=== PATIENT | male | born 1940 | race Caucasian/White ===

== ENCOUNTER 2017-04-23 07:17 | Day surgery (SDC) | payer MEDICARE, OTHER ==
[~2017-04-23 07:17] MED LIST: Lactated Ringers 1,000 ML IV SCH; Lidocaine 1%/Sod Bicarbonate in NS 8.4% 1 ML Syringe PRN; Sodium Chloride 0.9% 10 ML Syringe FLUSH PRN
[2017-04-23] MEDS ORDERED: Propofol 200 MG/20 ML SDV ONE ×2 (07:36→08:46)
[2017-04-23] MEDS ORDERED: fentaNYL 100 MCG/2 ML SDV ONE (07:37)
[2017-04-23] MEDS ORDERED: Lidocaine 1% 4 ML ONE (07:38)
--- NOTE | 2017-04-23 07:39 | PCM.PREANE ---
Preanesthetic Assessment - Anesthesia/Transfusion/Family Hx Anesthesia History: Prior Anesthesia Without Reaction Family History of Anesthesia Reaction: No Transfusion History: No Prior Transfusion(s) - Review of Systems General: No Symptoms Pulmonary: No Symptoms Cardiovascular: No Symptoms Gastrointestinal: No symptoms Neurological: No Symptoms Other: Reports: None - Physical Assessment NPO Status Date: 04/22/17 NPO Status Time: 00:00 Pulse: 65 O2 Sat by Pulse Oximetry: 96 Respiratory Rate: 16 Blood Pressure: 151/78 Temperature: 37.3 C Height: 1.65 m Weight: 65.771 kg ASA Class: 2 Mental Status: Alert & Oriented x3 Airway Class: Mallampati = 1 Dentition: Reports: Normal Dentition, Missing Tooth/Teeth Thyro-Mental Finger Breadths: 3 Mouth Opening Finger Breadths: 3 ROM/Head Extension: Full Lungs: Clear to auscultation, Normal respiratory effort Cardiovascular: Regular Rate, Regular Rhythm - Lab Values: on chart - Imaging/EKG Impressions: on chart - Allergies Allergies/Adverse Reactions: Allergies Allergy/AdvReac Type Severity Reaction Status Date / Time atorvastatin [From Lipitor] Allergy Cannot Verified 04/21/17 12:46 Remember rosuvastatin [From Crestor] Allergy Cannot Verified 04/21/17 12:46 Remember - Anesthesia Plan Pre-Op Medication Ordered: Beta Clifford Beta Clifford: Metoprolol Med Last Dose Date: 04/22/17 Med Last Dose Time: 17:30 - Acknowledgements Anesthesia Type Planned: MAC Pt an Appropriate Candidate for the Planned Anesthesia: Yes Alternatives and Risks of Anesthesia Discussed w Pt/Guardian: Yes Pt/Guardian Understands and Agrees with Anesthesia Plan: Yes PreAnesthesia Questionnaire HEENT History: Reports: Impaired Vision Cardiovascular History: Reports: High Cholesterol, Hypertension Other Cardiovascular History: non sustatined vtach Respiratory History: Reports: None Gastrointestinal History: Reports: Colon Polyp, Other (See Below) Other Gastrointestinal History: dysphagia Genitourinary History: Reports: Prostate Disorder, Other (See Below) Other Genitourinary History: prostate cancer [employer]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 Psychiatric History: Reports: None Endocrine/Metabolic History: Reports: None Hematologic History: Reports: None Immunologic History: Reports: None Oncologic (Cancer) History: Reports: Prostate Dermatologic History: Reports: None - Infectious Disease History Infectious Disease History: Reports: Chicken Pox, Measles, Mumps - Past Surgical History Head Surgeries/Procedures: Reports: None HEENT Surgical History: Reports: Naso-Sinus Surgery Cardiovascular Surgical History: Reports: None GI Surgical History: Reports: Colonoscopy Male Surgical History: Reports: None Other Male Surgeries/Procedures: Prostate biopsy Neurological Surgical History: Reports: Other (See Below) Other Neurological Surgeries/Procedures: broke neck when 22 and was placed in traction for 6 weeks Musculoskeletal Surgical History: Reports: Other (See Below) Other Musculoskeletal Surgeries/Procedures:: leg surgery Oncologic Surgical History: Reports: None - SUBSTANCE USE Smoking Status *Q: Never Smoker Tobacco Use Within Last Twelve Months: No Second Hand Smoke Exposure: No Days Per Week of Alcohol Use: 0 Number of Drinks Per Day: 0 Total Drinks Per Week: 0 Recreational Drug Use History: No - HOME MEDS Home Medications: Home Meds Dutasteride 0.5 mg PO DAILY 08/14/16 [History] Tamsulosin [Flomax] 0.4 mg PO BEDTIME 08/14/16 [History] amLODIPine [Norvasc] 10 mg PO DAILY 08/14/16 [History] Acetaminophen/oxyCODONE [Percocet 325-5 MG] 1 - 2 tab PO Q4H PRN #60 tablet [Rx] Calcium Carbonate [Calcium] 500 mg PO DAILY 04/21/17 [History] Cholecalciferol (Vitamin D3) [Vitamin D3] 1,000 mg PO DAILY 04/21/17 [History] Lactobacillus Acidophilus [Probiotic] 1 cap PO DAILY 04/21/17 [History] Latanoprost [Xalatan] 1 drop EYEBOTH BEDTIME 04/21/17 [History] Magnesium Oxide 400 mg PO DAILY 04/21/17 [History] Metoprolol Succinate 25 mg PO DAILY 04/21/17 [History] Omeprazole Magnesium [Prilosec Otc] 20 mg PO DAILY 04/21/17 [History] Potassium 99 mg PO DAILY 04/21/17 [History] Pravastatin [Pravachol] 40 mg PO DAILY 04/21/17 [History] Ubidecarenone [Coq-10] 100 mg PO DAILY 04/21/17 [History] - CURRENT (IN HOUSE) MEDS Current Meds: Current Medications Lactated Ringer's (Ringers, Lactated) 1,000 mls @ 125 mls/hr IV ASDIRECTED UMA Stop: 04/23/17 23:00 Lidocaine/Sodium Bicarbonate (Buffered Lidocaine 1% In Ns 8.4%) 0.25 ml .XX ONETIME PRN PRN Reason: Prior to IV Start Stop: 04/23/17 18:00 Sodium Chloride (Saline Flush) 10 ml FLUSH ASDIRECTED PRN PRN Reason: Keep Vein Open Stop: 04/23/17 18:00 Discontinued Medications Fentanyl (Sublimaze) Confirm Administered Dose 100 mcg .ROUTE .STK-MED ONE Stop: 04/23/17 07:38 Lidocaine HCl (Xylocaine-Mpf 1%) Confirm Administered Dose 4 mls @ as directed .ROUTE .STK-MED ONE Stop: 04/23/17 07:39 Propofol (Diprivan 20 Ml) Confirm Administered Dose 200 mg .ROUTE .STK-MED ONE Stop: 04/23/17 07:37
--- NOTE | 2017-04-23 08:09 | PCM.HP ---
H&P History of Present Illness - General Date of Service: 04/23/17 Source of Information: Patient History Limitations: Reports: No Limitations - History of Present Illness Initial Comments - Free Text/Narative: 77 yo M who presents for EGD and colonoscopy. No changes since he was last seen in the office by ANGELY Escobedo. Prep went okay, threw up one glass of prep. Stools liquid and reportedly fairly clear. Here w/ . No questions or concerns. - Related Data Allergies/Adverse Reactions: Allergies Allergy/AdvReac Type Severity Reaction Status Date / Time atorvastatin [From Lipitor] Allergy Cannot Verified 04/21/17 12:46 Remember rosuvastatin [From Crestor] Allergy Cannot Verified 04/21/17 12:46 Remember Home Medications: Home Meds Dutasteride 0.5 mg PO DAILY 08/14/16 [History] Tamsulosin [Flomax] 0.4 mg PO BEDTIME 08/14/16 [History] amLODIPine [Norvasc] 10 mg PO DAILY 08/14/16 [History] Acetaminophen/oxyCODONE [Percocet 325-5 MG] 1 - 2 tab PO Q4H PRN #60 tablet [Rx] Calcium Carbonate [Calcium] 500 mg PO DAILY 04/21/17 [History] Cholecalciferol (Vitamin D3) [Vitamin D3] 1,000 mg PO DAILY 04/21/17 [History] Lactobacillus Acidophilus [Probiotic] 1 cap PO DAILY 04/21/17 [History] Latanoprost [Xalatan] 1 drop EYEBOTH BEDTIME 04/21/17 [History] Magnesium Oxide 400 mg PO DAILY 04/21/17 [History] Metoprolol Succinate 25 mg PO DAILY 04/21/17 [History] Omeprazole Magnesium [Prilosec Otc] 20 mg PO DAILY 04/21/17 [History] Potassium 99 mg PO DAILY 04/21/17 [History] Pravastatin [Pravachol] 40 mg PO DAILY 04/21/17 [History] Ubidecarenone [Coq-10] 100 mg PO DAILY 04/21/17 [History] Past Medical History HEENT History: Reports: Impaired Vision Cardiovascular History: Reports: High Cholesterol, Hypertension Other Cardiovascular History: non sustatined vtach Respiratory History: Reports: None Gastrointestinal History: Reports: Colon Polyp, Other (See Below) Other Gastrointestinal History: dysphagia Genitourinary History: Reports: Prostate Disorder, Other (See Below) Other Genitourinary History: prostate cancer SHUTTLE HAND History: Reports: None Other Musculoskeletal History: Broken leg 6 years ago Neurological History: Reports: None, Concussion Other Neuro History: Hx of dizzy spells about 1.5 years ago. Psychiatric History: Reports: None Endocrine/Metabolic History: Reports: None Hematologic History: Reports: None Immunologic History: Reports: None Oncologic (Cancer) History: Reports: Prostate Dermatologic History: Reports: None - Infectious Disease History Infectious Disease History: Reports: Chicken Pox, Measles, Mumps - Past Surgical History Head Surgeries/Procedures: Reports: None HEENT Surgical History: Reports: Naso-Sinus Surgery Cardiovascular Surgical History: Reports: None GI Surgical History: Reports: Colonoscopy Male Surgical History: Reports: None Other Male Surgeries/Procedures: Prostate biopsy Neurological Surgical History: Reports: Other (See Below) Other Neurological Surgeries/Procedures: broke neck when 22 and was placed in traction for 6 weeks Musculoskeletal Surgical History: Reports: Other (See Below) Other Musculoskeletal Surgeries/Procedures:: leg surgery Oncologic Surgical History: Reports: None Social & Family History - Family History Family Medical History: Noncontributory - Tobacco Use Smoking Status *Q: Never Smoker Second Hand Smoke Exposure: No - Caffeine Use Caffeine Use: Reports: Coffee - Alcohol Use Days Per Week of Alcohol Use: 0 Number of Drinks Per Day: 0 Total Drinks Per Week: 0 - Recreational Drug Use Recreational Drug Use: No - Living Situation & Occupation Living situation: Reports: Occupation: Employed H&P Review of Systems - Review of Systems: Review Of Systems: ROS reveals no pertinent complaints other than HPI. Exam - Exam Exam: See Below - Vital Signs Vital Signs: Last Vital Signs Temp 99.2 F 04/23/17 07:49 Pulse 65 04/23/17 07:49 Resp 16 04/23/17 07:49 BP 151/78 H 04/23/17 07:49 Pulse Ox 96 04/23/17 07:49 Weight: 145 lb - Exam HEENT: Conjunctiva Clear. No: Scleral Icterus Lungs: Clear to Auscultation, Normal Respiratory Effort Cardiovascular: Regular Rate, Regular Rhythm Abdomen: Soft. No: Peritoneal Signs, Guarding, Rigidity, Rebound, Tenderness Extremities: No: Clubbing, Cyanosis Skin: Warm, Dry, Intact *Q Meaningful Use (ADM) - VTE *Q VTE Criteria *Q: - Stroke *Q Stroke Criteria *Q: - AMI *Q AMI Criteria *Q: - Problem List (1) History of colon polyps SNOMED Code(s): 922202061 ICD Code: Z86.010 - PERSONAL HISTORY OF COLONIC POLYPS Status: Acute Current Visit: Yes (2) Family hx of colon cancer SNOMED Code(s): 587338405 ICD Code: Z80.0 - FAMILY HISTORY OF MALIGNANT NEOPLASM OF DIGESTIVE ORGANS Status: Acute Current Visit: Yes (3) Reflux esophagitis SNOMED Code(s): 394664853 ICD Code: K21.0 - GASTRO-ESOPHAGEAL REFLUX DISEASE WITH ESOPHAGITIS Status : Acute Current Visit: Yes (4) Heartburn SNOMED Code(s): 05282012 ICD Code: R12 - HEARTBURN Status: Acute Current Visit: Yes (5) History of dysphagia SNOMED Code(s): 901395180 ICD Code: Z87.19 - PERSONAL HISTORY OF OTHER DISEASES OF THE DIGESTIVE SYSTEM Status: Acute Current Visit: Yes Problem List Initiated/Reviewed/Updated: Yes Orders Last 24hrs: Active Orders 24 hr Category Date Time Status Peripheral IV Care [RC] . DIRECTED Care 04/23/17 00:01 Active Verify Patient Consent Obtain [RC] ASDIRECTED Care 04/23/17 00:01 Active Lactated Ringers [Ringers, Lactated] 1,000 ml Med 04/23/17 00:01 Active IV ASDIRECTED Lidocaine 1%/Sod Bicarbonate [Buffered Lidocaine 1% in Med 04/23/17 00:01 Active NS 8.4%] 0.25 ml .XX ONETIME PRN Sodium Chloride 0.9% [Saline Flush] Med 04/23/17 00:01 Active 10 ml FLUSH ASDIRECTED PRN Medication Administration Instruction [OM.PC] Routine Oth 04/23/17 00:01 Ordered Peripheral IV Insertion Adult [OM.PC] Routine Oth 04/23/17 00:01 Ordered Medication Orders Lactated Ringer's (Ringers, Lactated) 1,000 mls @ 125 mls/hr IV ASDIRECTED UMA Stop: 04/23/17 23:00 Last Admin: 04/23/17 07:40 Dose: 125 mls/hr Lidocaine/Sodium Bicarbonate (Buffered Lidocaine 1% In Ns 8.4%) 0.25 ml .XX ONETIME PRN PRN Reason: Prior to IV Start Stop: 04/23/17 18:00 Last Admin: 04/23/17 07:40 Dose: 0.25 ml Sodium Chloride (Saline Flush) 10 ml FLUSH ASDIRECTED PRN PRN Reason: Keep Vein Open Stop: 04/23/17 18:00 Assessment/Plan Comment:: 77 yo M in need of Dx EGD and surveillance colonoscopy. Proceed as planned.
--- NOTE | 2017-04-23 09:14 | PCM.OPNOTE ---
- General Post-Op/Procedure Note Date of Surgery/Procedure: 04/23/17 Operative Procedure(s): Diagnostic EGD with cold forceps biopsy and surveillance colonoscopy Pre Op Diagnosis: History of dysphagia, inability to wean from PPI, personal history of colon polyps, family history of colon cancer Post-Op Diagnosis: Normal upper endoscopy, Diverticulosis, grade 2 internal hemorrhoids Anesthesia Technique: MAC Primary Surgeon: Sarah Jimenez Anesthesia Provider: Zhou Grigsby Pathology: 1. Small bowel biopsy 2. Antral biopsy 3. Distal esophageal biopsy EBL in mLs: 1 Complications: None Condition: Good Free Text/Narrative:: FLUIDS: 600 mL crystalloid. INDICATION FOR PROCEDURE: The patient is a 77-year-old man who was referred to me by Dr. Jose Miguel Cueto for evaluation for history of intermittent dysphagia, inability to wean off of PPI, and personal history of colon polyps. Performing a colonoscopy and EGD and the associated risks of the procedures had been discussed with the patient. The patient found these risks acceptable and agreed to proceed. DESCRIPTION OF PROCEDURE: The patient was taken to the operating room and placed in the left lateral decubitus position. After induction of adequate sedation, a bite block was placed. A standard Olympus gastroscope was inserted into the oropharynx and guided down the esophagus without difficulty. The gastroesophageal junction was appreciated at 37 cm from the teeth. There was no evidence of stricture or esophageal ulcerations. The scope was advanced into the stomach, and it was unremarkable. The scope was passed into the proximal jejunum and the duodenum which were unremarkable. There were no petechiae or ulcerations. The proximal jejunum was grossly normal in appearance. Multiple cold forceps biopsies were obtained of the proximal jejunum and duodenum. The scope was withdrawn into the antrum, and additional cold forceps biopsies were obtained. The remainder of the gastric body was examined, and there were no additional findings. The scope was retroflexed, and there was no evidence of hiatal hernia. The scope was straightened and withdrawn to the GE junction. Additional cold forceps biopsies were obtained of the distal esophagus. The scope was withdrawn through the remainder of the esophagus and no further abnormalities were noted. The posterior oropharynx was grossly normal in appearance. The scope was fully withdrawn and attention was then turned to the colonoscopy. A digital rectal exam was performed which was unremarkable. The prostate was non -nodular and only mildly enlarged. A pediatric Olympus colonoscope was inserted into the rectum and guided under direct visualization to the appendiceal orifice and ileocecal valve. The scope was then slowly withdrawn through the colon. The quality of the prep was very good. There was no evidence of angiodysplasias or mass lesions. Diverticulosis was noted in the sigmoid colon, it was mild. The scope was withdrawn into the rectum and retroflexed. There were Grade II internal hemorrhoids. The scope was straightened, the colon was desufflated, and the scope was withdrawn. The patient was awakened from sedation and transferred to the recovery room in stable condition having tolerated the procedure well. POSTOPERATIVE PLAN: I discussed with the patient's my intraoperative findings and recommendations. The patient will follow up in approximately 7-10 days to discuss pathology and how their symptoms are progressing. The patient is to continue his PPI for the time being. I have asked the patient to follow a GERD\gastritis diet. The patient is to call with any worsening of symptoms or questions prior to the appointment.
[2017-04-23 11:10] VITALS: BP 136/72
== END 2017-04-23 09:55 | disposition home or self-care (01) ==
LOC: JD.SDS 07:17
PROVIDERS: ATTEND Surgery
DX: Z12.11 Encounter for screening for malignant neoplasm of colon (principal); Z86.010 Personal history of colon polyps; K57.30 Diverticulosis of large intestine without perforation or abscess without bleeding; K64.8 Other hemorrhoids; Z88.8 Allergy status to other drugs, medicaments and biological substances
CPT/HCPCS: 43239; 88305; G0105; J3010; J7120; J2704

== ENCOUNTER → 2019-10-07 | Day surgery (SDC) | payer MEDICARE, OTHER ==
[2019-10-07] MEDS: Polymyxin B/Trimethoprim 10 ML Bottle EYERT SCH ×4 (11:43→13:45)
[2019-10-07] MEDS: Brimonidine 0.2% Ophth Soln 5 ML Bottle EYERT SCH ×4 (11:47→13:45)
--- NOTE | 2019-10-07 11:51 | PCM.PREANE ---
Preanesthetic Assessment - Anesthesia/Transfusion/Family Hx Anesthesia History: Prior Anesthesia Without Reaction Family History of Anesthesia Reaction: No Transfusion History: No Prior Transfusion(s) Intubation History: Unknown - Review of Systems General: No Symptoms Pulmonary: No Symptoms Cardiovascular: No Symptoms Gastrointestinal: Diarrhea Neurological: No Symptoms Other: Reports: None - Physical Assessment NPO Status Date: 10/06/19 NPO Status Time: 20:00 ASA Class: 2 Mental Status: Alert & Oriented x3 Airway Class: Mallampati = 1 Dentition: Reports: Normal Dentition, Implants Thyro-Mental Finger Breadths: 3 Mouth Opening Finger Breadths: 3 ROM/Head Extension: Full Lungs: Clear to Auscultation, Normal Respiratory Effort Cardiovascular: Regular Rate, Regular Rhythm - Allergies Allergies/Adverse Reactions: Allergies Allergy/AdvReac Type Severity Reaction Status Date / Time No Known Allergies Allergy Verified 10/06/19 16:26 - Acknowledgements Anesthesia Type Planned: MAC Pt an Appropriate Candidate for the Planned Anesthesia: Yes Alternatives and Risks of Anesthesia Discussed w Pt/Guardian: Yes Pt/Guardian Understands and Agrees with Anesthesia Plan: Yes PreAnesthesia Questionnaire HEENT History: Reports: Cataract, Impaired Vision Cardiovascular History: Reports: High Cholesterol, Hypertension Other Cardiovascular History: non sustatined vtach Respiratory History: Reports: None Gastrointestinal History: Reports: Colon Polyp, Other (See Below) Other Gastrointestinal History: dysphagia Genitourinary History: Reports: Prostate Disorder, Other (See Below) Other Genitourinary History: prostate cancer [employer]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 Psychiatric History: Reports: None Endocrine/Metabolic History: Reports: None Hematologic History: Reports: None Immunologic History: Reports: None Oncologic (Cancer) History: Reports: Prostate Dermatologic History: Reports: None - Infectious Disease History Infectious Disease History: Reports: Chicken Pox, Measles, Mumps - Past Surgical History Head Surgeries/Procedures: Reports: None HEENT Surgical History: Reports: Naso-Sinus Surgery Cardiovascular Surgical History: Reports: None GI Surgical History: Reports: Colonoscopy Male Surgical History: Reports: None Other Male Surgeries/Procedures: Prostate biopsy Neurological Surgical History: Reports: Other (See Below) Other Neurological Surgeries/Procedures: broke neck when 22 and was placed in traction for 6 weeks Musculoskeletal Surgical History: Reports: Other (See Below) Other Musculoskeletal Surgeries/Procedures:: leg surgery Oncologic Surgical History: Reports: None - SUBSTANCE USE Smoking Status *Q: Never Smoker - HOME MEDS Home Medications: Home Meds Calcium Carbonate [Calcium] 500 mg PO DAILY 10/06/19 [History] Carboxymethylcellulose Sodium [Artificial Tears] 1 drop EYEBOTH ASDIRECTED PRN 10/06/19 [History] Carvedilol [Coreg] 25 mg PO DAILY 10/06/19 [History] Cholecalciferol (Vitamin D3) [Vitamin D3] 1,000 unit PO DAILY 10/06/19 [History] Dutasteride [Avodart] 0.5 mg PO DAILY 10/06/19 [History] Lactobacillus Acidophilus [Probiotic] 1 cap PO DAILY 10/06/19 [History] Latanoprost/Pf [Latanoprost 0.005% Eye Drop] 1 drop EYEBOTH BEDTIME 10/06/19 [ History] Magnesium Oxide [Magnesium] 400 mg PO DAILY 10/06/19 [History] Multivitamin [Poly-Vitamin] 1 tab PO DAILY 10/06/19 [History] Omeprazole Magnesium [Prilosec Otc] 20 mg PO DAILY 10/06/19 [History] Spironolactone [Aldactone] 25 mg PO DAILY 10/06/19 [History] Tamsulosin [Flomax] 0.4 mg PO DAILY 10/06/19 [History] Ubidecarenone [COQ-10] 30 mg PO DAILY 10/06/19 [History] Vitc/E/Zinc/Copper/Lutein/Zeax [Icaps Areds2 Chewable Tablet] 1 cap PO DAILY [History] amLODIPine [Norvasc] 5 mg PO DAILY 10/06/19 [History] - CURRENT (IN HOUSE) MEDS Current Meds: Current Medications Brimonidine Tartrate (Alphagan 0.2% [facility]) 0 ml EYERT ASDIRECTED UMA Stop: 10/07/19 18:00 Last Admin: 10/07/19 11:47 Dose: 1 drop Cefuroxime Sodium (Zinacef) 0 mg EYERT ASDIRECTED UMA Stop: 10/07/19 18:00 Lidocaine HCl (Xylocaine-Mpf 1%) 0 ml INJECT ASDIRECTED UMA Stop: 10/07/19 18:00 Phenylephrine HCl (Juan Manuel-Synephrine 2.5% Ophth Soln) 0 ml EYERT ASDIRECTED UMA Stop: 10/07/19 18:00 Pilocarpine HCl (Pilocar 4% Ophth Soln) 0 ml EYERT ASDIRECTED UMA Stop: 10/07/19 18:00 Polymyxin/Trimethoprim Sulfate (Polytrim Ophth Soln) 0 ml EYERT ASDIRECTED UMA Stop: 10/07/19 18:00 Last Admin: 10/07/19 11:43 Dose: 1 drop Tetracaine HCl (Tetracaine 0.5% Steri-Unit Magali) 0 ml EYERT ASDIRECTED UMA Stop: 10/07/19 18:00 Tropicamide (Mydriacyl 1% Ophth Soln) 0 ml EYERT ASDIRECTED UMA Stop: 10/07/19 18:00
[2019-10-07] MEDS: Phenylephrine 2.5% Ophth Soln 2 ML Bot EYERT SCH ×6 (11:53→13:22)
[2019-10-07] MEDS: Tropicamide 1% Ophth Soln 15 ML Bottle EYERT SCH ×4 (11:58→12:44)
[2019-10-07] MEDS: Tetracaine HCl/PF 0.5% 4 ML Bottle EYERT SCH ×3 (12:39→13:29)
[2019-10-07] MEDS: Lidocaine 1% PF 2 ML SDV INJECT SCH ×2 (12:40→13:30)
[2019-10-07] MEDS: Cefuroxime 10 MG/ML SYRINGE EYERT SCH ×2 (12:41→13:44)
[2019-10-07] MEDS: Pilocarpine 4% Ophth Soln 15 ML Bot EYERT SCH ×2 (12:43→13:45)
--- NOTE | 2019-10-07 13:34 | PCM48HPAN ---
Post Anesthesia Note - EVALUATION WITHIN 48HRS OF ANESTHETIC Vital Signs in Normal Range: Yes Patient Participated in Evaluation: Yes Respiratory Function Stable: Yes Airway Patent: Yes Cardiovascular Function Stable: Yes Hydration Status Stable: Yes Pain Control Satisfactory: Yes Nausea and Vomiting Control Satisfactory: Yes Mental Status Recovered: Yes Vital Signs: Last Vital Signs Temp 36.6 C 10/07/19 11:35 Pulse 82 10/07/19 11:35 Resp 16 10/07/19 11:35 BP 151/82 H 10/07/19 11:35 Pulse Ox 97 10/07/19 11:35
[2019-10-07 13:59] VITALS: BP 146/78; PULSE 89
== END ==
LOC: JD.SDS 10:26
PROVIDERS: ATTEND Ophthalmology
DX: H25.813 Combined forms of age-related cataract, bilateral (principal); H21.81 Floppy iris syndrome; H21.41 Pupillary membranes, right eye; H40.053 Ocular hypertension, bilateral; H35.373 Puckering of macula, bilateral; H02.834 Dermatochalasis of left upper eyelid; H02.831 Dermatochalasis of right upper eyelid; H16.103 Unspecified superficial keratitis, bilateral; H16.223 Keratoconjunctivitis sicca, not specified as Sjogren's, bilateral; E78.00 Pure hypercholesterolemia, unspecified; I10 Essential (primary) hypertension; M19.90 Unspecified osteoarthritis, unspecified site; Z79.899 Other long term (current) drug therapy
CPT/HCPCS: 66982; J0697; J2001; C1780

== ENCOUNTER 2019-11-11 07:38 | Day surgery (SDC) | payer MEDICARE, OTHER ==
[2019-11-11] MEDS: Polymyxin B/Trimethoprim 10 ML Bottle EYELF SCH ×4 (07:49→10:13)
[2019-11-11] MEDS: Brimonidine 0.2% Ophth Soln 5 ML Bottle EYELF SCH ×4 (07:56→10:13)
[2019-11-11] MEDS: Phenylephrine 2.5% Ophth Soln 2 ML Bot EYELF SCH ×6 (08:01→10:10)
[2019-11-11] MEDS: Tropicamide 1% Ophth Soln 15 ML Bottle EYELF SCH ×4 (08:06→09:26)
--- NOTE | 2019-11-11 08:21 | PCM.PREANE ---
Preanesthetic Assessment - Anesthesia/Transfusion/Family Hx Anesthesia History: Prior Anesthesia Without Reaction Family History of Anesthesia Reaction: No Transfusion History: No Prior Transfusion(s) Intubation History: Unknown - Review of Systems General: No Symptoms Pulmonary: No Symptoms, Cough Cardiovascular: No Symptoms (HTN) Gastrointestinal: No Symptoms Neurological: No Symptoms Other: Reports: None, Sinus Problem - Physical Assessment NPO Status Date: 11/10/19 NPO Status Time: 20:30 Vital Signs: HR: 71 BP: 123/69 Resp: 16 Sat: 96% Temp: 98.3 Height: 1.68 m Weight: 70.307 kg ASA Class: 2 Mental Status: Alert & Oriented x3 Airway Class: Mallampati = 2 Dentition: Reports: Normal Dentition, Caries Thyro-Mental Finger Breadths: 3 Mouth Opening Finger Breadths: 3 ROM/Head Extension: Full Lungs: Clear to Auscultation, Normal Respiratory Effort Cardiovascular: Regular Rate, Regular Rhythm, No Murmurs - Allergies Allergies/Adverse Reactions: Allergies Allergy/AdvReac Type Severity Reaction Status Date / Time No Known Allergies Allergy Verified 11/09/19 12:03 - Anesthesia Plan Pre-Op Medication Ordered: Beta Clifford Beta Clifford: Carvedilol Med Last Dose Date: 11/11/19 Med Last Dose Time: 06:30 - Acknowledgements Anesthesia Type Planned: MAC Pt an Appropriate Candidate for the Planned Anesthesia: Yes Alternatives and Risks of Anesthesia Discussed w Pt/Guardian: Yes Pt/Guardian Understands and Agrees with Anesthesia Plan: Yes PreAnesthesia Questionnaire HEENT History: Reports: Cataract, Impaired Vision Cardiovascular History: Reports: High Cholesterol, Hypertension Other Cardiovascular History: non sustatined vtach Respiratory History: Reports: None Gastrointestinal History: Reports: Colon Polyp, Other (See Below) Other Gastrointestinal History: dysphagia Genitourinary History: Reports: Prostate Disorder, Other (See Below) Other Genitourinary History: prostate cancer TILER'S ASSISTANT History: Reports: None Musculoskeletal History: Reports: Arthritis Other Musculoskeletal History: Broken leg 6 years ago Neurological History: Reports: None, Concussion Other Neuro History: Hx of dizzy spells about 1.5 years ago. Psychiatric History: Reports: None Endocrine/Metabolic History: Reports: None Hematologic History: Reports: None Immunologic History: Reports: None Oncologic (Cancer) History: Reports: Prostate Dermatologic History: Reports: None - Infectious Disease History Infectious Disease History: Reports: Chicken Pox, Measles, Mumps - Past Surgical History Head Surgeries/Procedures: Reports: None HEENT Surgical History: Reports: Naso-Sinus Surgery Cardiovascular Surgical History: Reports: None GI Surgical History: Reports: Colonoscopy Male Surgical History: Reports: None Other Male Surgeries/Procedures: Prostate biopsy Neurological Surgical History: Reports: Other (See Below) Other Neurological Surgeries/Procedures: broke neck when 22 and was placed in traction for 6 weeks Musculoskeletal Surgical History: Reports: Other (See Below) Other Musculoskeletal Surgeries/Procedures:: leg surgery Oncologic Surgical History: Reports: None - HOME MEDS Home Medications: Home Meds Calcium Carbonate [Calcium] 500 mg PO BEDTIME 10/06/19 [History] Carboxymethylcellulose Sodium [Artificial Tears] 1 drop EYEBOTH ASDIRECTED PRN 10/06/19 [History] Carvedilol [Coreg] 25 mg PO BID 10/06/19 [History] Cholecalciferol (Vitamin D3) [Vitamin D3] 1,000 unit PO BEDTIME 10/06/19 [ History] Dutasteride [Avodart] 0.5 mg PO BEDTIME 10/06/19 [History] Lactobacillus Acidophilus [Probiotic] 1 cap PO BEDTIME 10/06/19 [History] Latanoprost/Pf [Latanoprost 0.005% Eye Drop] 1 drop EYEBOTH BEDTIME 10/06/19 [ History] Magnesium Oxide [Magnesium] 400 mg PO BEDTIME 10/06/19 [History] Multivitamin [Poly-Vitamin] 1 tab PO BEDTIME 10/06/19 [History] Spironolactone [Aldactone] 25 mg PO DAILY 10/06/19 [History] Tamsulosin [Flomax] 0.4 mg PO BEDTIME 10/06/19 [History] Ubidecarenone [COQ-10] 30 mg PO BEDTIME 10/06/19 [History] Vitc/E/Zinc/Copper/Lutein/Zeax [Icaps Areds2 Chewable Tablet] 1 cap PO BEDTIME 10/06/19 [History] amLODIPine [Norvasc] 5 mg PO DAILY 10/06/19 [History] - CURRENT (IN HOUSE) MEDS Current Meds: Current Medications Brimonidine Tartrate (Alphagan 0.2% Ophth Soln) 0 ml EYELF ASDIRECTED UMA Stop: 11/11/19 18:00 Last Admin: 11/11/19 07:56 Dose: 1 drop Cefuroxime Sodium (Zinacef) 0 mg EYELF ASDIRECTED UMA Stop: 11/11/19 18:00 Lidocaine HCl (Xylocaine-Mpf 1%) 0 ml INJECT ASDIRECTED UMA Stop: 11/11/19 18:00 Phenylephrine HCl (Juan Manuel-Synephrine 2.5% Ophth Soln) 0 ml EYELF ASDIRECTED UMA Stop: 11/11/19 18:00 Last Admin: 11/11/19 08:01 Dose: 1 drop Pilocarpine HCl (Pilocar 4% Ophth Soln) 0 ml EYELF ASDIRECTED UMA Stop: 11/11/19 18:00 Polymyxin/Trimethoprim Sulfate (Polytrim Ophth Soln) 0 ml EYELF ASDIRECTED UMA Stop: 11/11/19 18:00 Last Admin: 11/11/19 07:49 Dose: 1 drop Tetracaine HCl (Tetracaine 0.5% Steri-Unit Magali) 0 ml EYELF ASDIRECTED UMA Stop: 11/11/19 18:00 Tropicamide (Mydriacyl 1% Ophth Soln) 0 ml EYELF ASDIRECTED UMA Stop: 11/11/19 18:00 Last Admin: 11/11/19 08:06 Dose: 1 drop
[2019-11-11] MEDS: Tetracaine HCl/PF 0.5% 4 ML Bottle EYELF SCH ×3 (09:41→10:10)
[2019-11-11] MEDS: Lidocaine 1% PF 2 ML SDV INJECT SCH ×2 (09:58→10:10)
[2019-11-11] MEDS: Cefuroxime 10 MG/ML SYRINGE EYELF SCH ×2 (10:10→10:12)
[2019-11-11] MEDS: Pilocarpine 4% Ophth Soln 15 ML Bot EYELF SCH ×2 (10:11→10:13)
--- NOTE | 2019-11-11 10:14 | PCM48HPAN ---
Post Anesthesia Note - EVALUATION WITHIN 48HRS OF ANESTHETIC Vital Signs in Normal Range: Yes Patient Participated in Evaluation: Yes Respiratory Function Stable: Yes Airway Patent: Yes Cardiovascular Function Stable: Yes Hydration Status Stable: Yes Pain Control Satisfactory: Yes Nausea and Vomiting Control Satisfactory: Yes Mental Status Recovered: Yes Vital Signs: Last Vital Signs Temp 36.8 C 11/11/19 07:50 Pulse 71 11/11/19 07:50 Resp 16 11/11/19 07:50 BP 123/69 11/11/19 07:50 Pulse Ox 96 11/11/19 07:50
[2019-11-11 10:31] VITALS: BP 131/59; PULSE 75
== END 2019-11-11 10:22 | disposition home or self-care (01) ==
LOC: JD.SDS 07:38
PROVIDERS: ATTEND Ophthalmology
DX: H25.812 Combined forms of age-related cataract, left eye (principal); H21.81 Floppy iris syndrome; I10 Essential (primary) hypertension; E78.00 Pure hypercholesterolemia, unspecified; M19.90 Unspecified osteoarthritis, unspecified site; Z79.899 Other long term (current) drug therapy
CPT/HCPCS: 66982; J0697; J2001; C1780

== ENCOUNTER 2021-07-05 15:08 | Emergency (ER) | payer MEDICARE, OTHER ==
[2021-07-05] MEDS ORDERED: Metoclopramide 10 MG/2 ML SDV IVPUSH ONE (15:34)
[2021-07-05] MEDS ORDERED: HYDROmorphone 0.5 MG/0.5 ML Syringe IVPUSH ONE ×2 (15:34→18:45)
[2021-07-05] MEDS ORDERED: Sodium Chloride 0.9% 1,000 ML IV SCH (15:45)
--- NOTE | 2021-07-05 15:49 | EDM.PDOC ---
ED HPI GENERAL MEDICAL PROBLEM - General Chief Complaint: Flank Pain Stated Complaint: [facility] Time Seen by Provider: 07/05/21 15:33 Source of Information: Reports: Patient, EMS History Limitations: Reports: No Limitations - History of Present Illness INITIAL COMMENTS - FREE TEXT/NARRATIVE: 81-year-old male presents to the ED after falling off a table approximately 32 inches off the ground. He landed on an overturned kitchen chair with blunt trauma to his left posterior lateral thorax. He states it did knock the wind out of him but when he tried to get up from the floor the pain was excruciating and the ambulance had to be called. Paramedics attempted an IV start but could not find a vein and therefore he has had no pain medication. He states if he lies absolutely still the pain is not too bad. He has fallen and broken right ribs in the past. He denies hitting his head or losing conscious. He has no neck pain no injuries to his shoulders elbows wrists hip or knees. Pain is in the posterior lateral thorax from ribs 8-12 clinically. Of note the patient did receive COVID-19 vaccination--he believes it may of this year. Onset: Today, Sudden Onset Date: 07/05/21 Onset Time: 15:00 Duration: Minutes: Location: Reports: Chest (Blunt trauma to the posterior lateral right thorax from a fall approximately 5 feet from the ground) Quality: Reports: Ache, Stabbing Severity: Severe (Pain is sharp and stabbing with deep inspiration) Improves with: Reports: Rest ( 8-9 out of 10 in shallow breathing) Worsens with: Reports: Movement (Worse with any movement or trying to sit up.) Context: Reports: Trauma (Fell approximately 5 feet while he was standing on a kitchen table. Lost his balance and fell on the an overturned kitchen chair seat with blunt trauma to his right posterior lateral thorax). Denies: Activity, Exercise, Lifting, Sick Contact Associated Symptoms: Reports: Chest Pain, Loss of Appetite, Shortness of Breath. Denies: Confusion, Cough (Posterior lateral thorax), cough w sputum, Diaphoresis, Fever/Chills, Headaches, Malaise, Nausea/Vomiting, Rash, Seizure, Syncope, Weakness Treatments HEAD CONCIERGE: Reports: Other (see below) (None) Right Flank Pain Score (Numeric/FACES): 4 - Related Data Allergies Allergy/AdvReac Type Severity Reaction Status Date / Time atorvastatin [From Lipitor] Allergy Cannot Verified 07/05/21 15:16 Remember Home Meds: Home Meds Calcium Carbonate [Calcium] 500 mg PO BEDTIME 10/06/19 [History] Carboxymethylcellulose Sodium [Artificial Tears] 1 drop EYEBOTH ASDIRECTED PRN 10/06/19 [History] Cholecalciferol (Vitamin D3) [Vitamin D3] 1,000 unit PO BEDTIME 10/06/19 [History] Dutasteride [Avodart] 0.5 mg PO BEDTIME 10/06/19 [History] Lactobacillus Acidophilus [Probiotic] 1 cap PO BEDTIME 10/06/19 [History] Latanoprost/Pf [Latanoprost 0.005% Eye Drop] 1 drop EYEBOTH BEDTIME 10/06/19 [History] Magnesium Oxide [Magnesium] 400 mg PO BEDTIME 10/06/19 [History] Multivitamin [Poly-Vitamin] 1 tab PO BEDTIME 10/06/19 [History] Spironolactone [Aldactone] 25 mg PO DAILY 10/06/19 [History] Tamsulosin [Flomax] 0.4 mg PO BEDTIME 10/06/19 [History] Ubidecarenone [COQ-10] 30 mg PO BEDTIME 10/06/19 [History] Vitc/E/Zinc/Copper/Lutein/Zeax [Icaps Areds2 Chewable Tablet] 1 cap PO BEDTIME 10/06/19 [History] amLODIPine [Norvasc] 5 mg PO DAILY 10/06/19 [History] carvediloL [Coreg] 25 mg PO BID 10/06/19 [History] Past Medical History HEENT History: Reports: Cataract, Glaucoma (Uses drops daily), Impaired Vision Cardiovascular History: Reports: High Cholesterol, Hypertension Other Cardiovascular History: non sustatined vtach Respiratory History: Reports: None Gastrointestinal History: Reports: Colon Polyp, Other (See Below) Other Gastrointestinal History: dysphagia Genitourinary History: Reports: Prostate Disorder, Other (See Below) Other Genitourinary History: prostate cancer--currently on Flomax and Avodart KITCHEN HELPER History: Reports: None Musculoskeletal History: Reports: Arthritis Other Musculoskeletal History: Broken leg 6 years ago Neurological History: Reports: None, Concussion Other Neuro History: Hx of dizzy spells about 1.5 years ago. Psychiatric History: Reports: None Endocrine/Metabolic History: Reports: None Hematologic History: Reports: None Immunologic History: Reports: None Oncologic (Cancer) History: Reports: Prostate Dermatologic History: Reports: None - Infectious Disease History Infectious Disease History: Reports: Chicken Pox, Measles, Mumps - Past Surgical History Head Surgeries/Procedures: Reports: None HEENT Surgical History: Reports: Naso-Sinus Surgery Cardiovascular Surgical History: Reports: None GI Surgical History: Reports: Colonoscopy Male Surgical History: Reports: None Other Male Surgeries/Procedures: Prostate biopsy Neurological Surgical History: Reports: Other (See Below) Other Neurological Surgeries/Procedures: broke neck when 22 and was placed in traction for 6 weeks Musculoskeletal Surgical History: Reports: Other (See Below) Other Musculoskeletal Surgeries/Procedures:: leg surgery Oncologic Surgical History: Reports: None Social & Family History - Family History Family Medical History: No Pertinent Family History - Tobacco Use Tobacco Use Status *Q: Never Tobacco User Second Hand Smoke Exposure: No - Caffeine Use Caffeine Use: Reports: Coffee - Recreational Drug Use Recreational Drug Use: No - Living Situation & Occupation Living situation: Reports: Occupation: Retired Review of Systems - Review of Systems Review Of Systems: See Below Constitutional: Reports: No Symptoms Eyes: Reports: Decreased Acuity (Patient has lost peripheral vision in both eyes due to glaucoma.), Vision Change, Glasses Ears: Reports: Other (Mildly hard of hearing but does not wear hearing aids) Mouth/Throat: Reports: No Symptoms, Other (No injury to his tongue or dentition) Respiratory: Reports: Shortness of Breath. Denies: Wheezing, Pleuritic Chest Pain, Cough, Sputum Cardiovascular: Denies: Chest Pain, Edema, Irregular Heart Rate, Lightheadedness, Syncope, Other GI/Abdominal: Reports: Other (Occasional problems with constipation) Genitourinary: Reports: Other (Nocturia x1-2. Known BPH with a history of prostate cancer. Is unclear what he was treated with.) Musculoskeletal: Reports: Neck Pain, Shoulder Pain, Back Pain, Joint Pain Skin: Reports: No Symptoms (He is and hips at times) Neurological: Reports: No Symptoms Psychiatric: Reports: No Symptoms ED EXAM, GENERAL - Physical Exam Exam: See Below Exam Limited By: Physical Impairment (Patient is in sick significant pain and cannot roll over or sit up from the gurney due to severe pain posterior lateral) General Appearance: Alert ( chest wall thorax and thoracic spine), Moderate Distress, Other (Moderate distress better if he lies perfectly still temperature is 36.4 degrees with heart rate of 67 and sinus respiratory is 18 with O2 sats of 92% room air BP elevated 1 8297) Eye Exam: Bilateral Eye: Normal Inspection (Previous bilateral cataract extractions and intraocular lens implants.), PERRL Throat/Mouth: Normal Inspection, Normal Oropharynx, Other (Logan several teeth. No injury to his tongue or dentition) Head: Atraumatic, Normocephalic Neck: Normal Inspection, Limited Range of Motion (Loss of 10 degrees lateral rotation and flexion with some crepitus.), Tender Lateral. No: Lymphadenopathy (L), Lymphadenopathy (R) (Tenderness lateral cervical spine which she states is normal for him) Respiratory/Chest: Lungs Clear, No Accessory Muscle Use, Respiratory Distress (Splinting respirations on the right side.), Decreased Breath Sounds (Decreased air entry to the right posterior lung field). No: Rales, Rhonchi, Wheezing Cardiovascular: Regular Rate, Rhythm, No Edema, No Gallop, No Murmur, No Rub. No: Normal Peripheral Pulses Peripheral Pulses: 2+: Carotid (L), Carotid (R), Posterior Tibial (L), Posterior Tibial (R), Dorsalis Pedis (L), Dorsalis Pedis (R) GI/Abdominal: Soft, Non-Tender, Guarding (Abdomen is firm to palpation particular right upper quadrant of the abdomen), Tender (Tenderness right upper quadrant and worrisome for potential liver or kidney injury), Abnormal Bowel Sounds (Bowel sounds are few and far between.), Other. No: Rigid ( right upper quadrant of the abdomen), Rebound Back Exam: CVA Tenderness (R), Vertebral Tenderness (Vertebral tenderness from thoracic 6 to lumbar 1.), Other (Severe tenderness from ribs 8-12 posterior laterally with crepitus). No: Full Range of Motion Extremities: Normal Inspection, Non-Tender, No Pedal Edema, Other (Injuries to the AC joints shoulders humerus elbows wrists knees or hips. Pelvis is intact) Neurological: Alert, Oriented, CN II-XII Intact, Normal Cognition Psychiatric: Other Skin Exam: Warm, Dry (Very stoic fellow and a good deal of pain), Intact, Normal Color, No Rash #1 Interpretation EKG Date: 07/05/21 Time: 18:37 Rhythm: NSR Rate (Beats/Min): 82 Quin[place]: LAD-Left Quincy Deviation (-61 degrees) P-Wave: Present (Inverted in lead V1. There is a first-degree AV block) QRS: Other (Left anterior fascicular block pattern poor R wave progression with late transition. Near Q waves leads II, III and aVF consider old inferior wall myocardial infarction) ST-T: Normal QT: Normal EKG Interpretation Comments: Abnormal ECG Course - Vital Signs Last Recorded V/S: Last Vital Signs Temp 36.4 C 07/05/21 15:12 Pulse 83 07/05/21 18:42 Resp 16 07/05/21 18:42 BP 157/89 H 07/05/21 18:42 Pulse Ox 96 07/05/21 18:42 - Orders/Labs/Meds Orders: Active Orders 24 hr Category Date Time Status ANTIBODY IDENTIFICATION [BBK] Stat Lab 07/05/21 17:03 Results PATIENT RETYPE [BBK] Routine Lab 07/05/21 18:04 Ordered TYPE AND SCREEN [BBK] Stat Lab 07/05/21 17:03 Results Sodium Chloride 0.9% [Normal Saline] 1,000 ml Med 07/05/21 15:45 Active IV ASDIRECTED Medication Orders Sodium Chloride (Normal Saline) 1,000 mls @ 150 mls/hr IV ASDIRECTED UMA Last Admin: 07/05/21 15:47 Dose: 150 mls/hr Documented by: GLENIS Labs: Laboratory Tests 07/05/21 07/05/21 07/05/21 Range/Units 17:02 17:03 17:03 WBC 14.79 H (4.23-9.07) K/mm3 RBC 4.30 L (4.63-6.08) M/mm3 Hgb 13.2 L D (13.7-17.5) gm/dl Hct 37.8 L (40.1-51.0) % MCV 87.9 (79.0-92.2) fl MCH 30.7 (25.7-32.2) pg MCHC 34.9 (32.2-35.5) g/dl RDW Std Deviation 38.6 (35.1-43.9) fL Plt Count 160 L (163-337) K/mm3 MPV 9.7 (9.4-12.3) fl Neut % (Auto) 84.3 H (34.0-67.9) % Lymph % (Auto) 9.7 L (21.8-53.1) % Atkinson % (Auto) 5.0 L (5.3-12.2) % Eos % (Auto) 0.7 L (0.8-7.0) Baso % (Auto) 0.1 (0.1-1.2) % Neut # (Auto) 12.47 H (1.78-5.38) K/mm3 Lymph # (Auto) 1.43 (1.32-3.57) K/mm3 Atkinson # (Auto) 0.74 (0.30-0.82) K/mm3 Eos # (Auto) 0.10 (0.04-0.54) K/mm3 Baso # (Auto) 0.02 (0.01-0.08) K/mm3 PT (9.7-12.0) SECONDS INR APTT (21.7-31.4) SECONDS Sodium 128 L (136-145) mEq/L Potassium 4.7 (3.5-5.1) mEq/L Chloride 95 L (98-107) mEq/L Carbon Dioxide 26 (21-32) mEq/L Anion Gap 11.7 (5-15) BUN 24 H (7-18) mg/dL Creatinine 1.5 H (0.7-1.3) mg/dL Est Cr Clr Drug Dosing 34.17 mL/min Estimated GFR (MDRD) 45 (>60) mL/min BUN/Creatinine Ratio 16.0 (14-18) Glucose 108 H (70-99) mg/dL Calcium 8.7 (8.5-10.1) mg/dL Magnesium (1.8-2.4) mg/dL Total Bilirubin 0.6 (0.2-1.0) mg/dL AST 25 (15-37) U/L ALT 26 (16-63) U/L Alkaline Phosphatase 69 (46-116) U/L NT-Pro-B Natriuret Pep 247 (0-450) pg/mL Total Protein 7.4 (6.4-8.2) g/dl Albumin 3.8 (3.4-5.0) g/dl Globulin 3.6 gm/dL Albumin/Globulin Ratio 1.1 (1-2) Amylase 37 (25-115) U/L Urine Color (Yellow) Urine Appearance (Clear) Urine pH (5.0-8.0) Ur Specific [place] (1.005-1.030) Urine Protein (Negative) Urine Glucose (UA) (Negative) Urine Ketones (Negative) Urine Occult Blood (Negative) Urine Nitrite (Negative) Urine Bilirubin (Negative) Urine Urobilinogen (0.2-1.0) Ur Leukocyte Esterase (Negative) Urine RBC (0-5) /hpf Urine WBC (0-5) /hpf Ur Epithelial Cells (0-5) /hpf Urine Bacteria (FEW) /hpf Urine Mucus (FEW) /hpf SARS-CoV-2 RNA (DENY) (NEGATIVE) Blood Type Gel Antibody Screen 07/05/21 07/05/21 07/05/21 Range/Units 17:03 17:03 17:03 WBC (4.23-9.07) K/mm3 RBC (4.63-6.08) M/mm3 Hgb (13.7-17.5) gm/dl Hct (40.1-51.0) % MCV (79.0-92.2) fl MCH (25.7-32.2) pg MCHC (32.2-35.5) g/dl RDW Std Deviation (35.1-43.9) fL Plt Count (163-337) K/mm3 MPV (9.4-12.3) fl Neut % (Auto) (34.0-67.9) % Lymph % (Auto) (21.8-53.1) % Atkinson % (Auto) (5.3-12.2) % Eos % (Auto) (0.8-7.0) Baso % (Auto) (0.1-1.2) % Neut # (Auto) (1.78-5.38) K/mm3 Lymph # (Auto) (1.32-3.57) K/mm3 Atkinson # (Auto) (0.30-0.82) K/mm3 Eos # (Auto) (0.04-0.54) K/mm3 Baso # (Auto) (0.01-0.08) K/mm3 PT 10.9 (9.7-12.0) SECONDS INR 0.98 APTT 25.9 (21.7-31.4) SECONDS Sodium (136-145) mEq/L Potassium (3.5-5.1) mEq/L Chloride (98-107) mEq/L Carbon Dioxide (21-32) mEq/L Anion Gap (5-15) BUN (7-18) mg/dL Creatinine (0.7-1.3) mg/dL Est Cr Clr Drug Dosing mL/min Estimated GFR (MDRD) (>60) mL/min BUN/Creatinine Ratio (14-18) Glucose (70-99) mg/dL Calcium (8.5-10.1) mg/dL Magnesium 2.1 (1.8-2.4) mg/dL Total Bilirubin (0.2-1.0) mg/dL AST (15-37) U/L ALT (16-63) U/L Alkaline Phosphatase (46-116) U/L NT-Pro-B Natriuret Pep (0-450) pg/mL Total Protein (6.4-8.2) g/dl Albumin (3.4-5.0) g/dl Globulin gm/dL Albumin/Globulin Ratio (1-2) Amylase (25-115) U/L Urine Color (Yellow) Urine Appearance (Clear) Urine pH (5.0-8.0) Ur Specific [place] (1.005-1.030) Urine Protein (Negative) Urine Glucose (UA) (Negative) Urine Ketones (Negative) Urine Occult Blood (Negative) Urine Nitrite (Negative) Urine Bilirubin (Negative) Urine Urobilinogen (0.2-1.0) Ur Leukocyte Esterase (Negative) Urine RBC (0-5) /hpf Urine WBC (0-5) /hpf Ur Epithelial Cells (0-5) /hpf Urine Bacteria (FEW) /hpf Urine Mucus (FEW) /hpf SARS-CoV-2 RNA (DENY) (NEGATIVE) Blood Type B NEGATIVE Gel Antibody Screen Positive 07/05/21 07/05/21 Range/Units 17:20 18:27 WBC (4.23-9.07) K/mm3 RBC (4.63-6.08) M/mm3 Hgb (13.7-17.5) gm/dl Hct (40.1-51.0) % MCV (79.0-92.2) fl MCH (25.7-32.2) pg MCHC (32.2-35.5) g/dl RDW Std Deviation (35.1-43.9) fL Plt Count (163-337) K/mm3 MPV (9.4-12.3) fl Neut % (Auto) (34.0-67.9) % Lymph % (Auto) (21.8-53.1) % Atkinson % (Auto) (5.3-12.2) % Eos % (Auto) (0.8-7.0) Baso % (Auto) (0.1-1.2) % Neut # (Auto) (1.78-5.38) K/mm3 Lymph # (Auto) (1.32-3.57) K/mm3 Atkinson # (Auto) (0.30-0.82) K/mm3 Eos # (Auto) (0.04-0.54) K/mm3 Baso # (Auto) (0.01-0.08) K/mm3 PT (9.7-12.0) SECONDS INR APTT (21.7-31.4) SECONDS Sodium (136-145) mEq/L Potassium (3.5-5.1) mEq/L Chloride (98-107) mEq/L Carbon Dioxide (21-32) mEq/L Anion Gap (5-15) BUN (7-18) mg/dL Creatinine (0.7-1.3) mg/dL Est Cr Clr Drug Dosing mL/min Estimated GFR (MDRD) (>60) mL/min BUN/Creatinine Ratio (14-18) Glucose (70-99) mg/dL Calcium (8.5-10.1) mg/dL Magnesium (1.8-2.4) mg/dL Total Bilirubin (0.2-1.0) mg/dL AST (15-37) U/L ALT (16-63) U/L Alkaline Phosphatase (46-116) U/L NT-Pro-B Natriuret Pep (0-450) pg/mL Total Protein (6.4-8.2) g/dl Albumin (3.4-5.0) g/dl Globulin gm/dL Albumin/Globulin Ratio (1-2) Amylase (25-115) U/L Urine Color Yellow (Yellow) Urine Appearance Clear (Clear) Urine pH 7.0 (5.0-8.0) Ur Specific [place] 1.015 (1.005-1.030) Urine Protein Negative (Negative) Urine Glucose (UA) Negative (Negative) Urine Ketones 1+ H (Negative) Urine Occult Blood Negative (Negative) Urine Nitrite Negative (Negative) Urine Bilirubin Negative (Negative) Urine Urobilinogen 0.2 (0.2-1.0) Ur Leukocyte Esterase Negative (Negative) Urine RBC 0-5 (0-5) /hpf Urine WBC 0-5 (0-5) /hpf Ur Epithelial Cells 0-5 (0-5) /hpf Urine Bacteria Not seen (FEW) /hpf Urine Mucus Not seen (FEW) /hpf SARS-CoV-2 RNA (DENY) Negative (NEGATIVE) Blood Type Gel Antibody Screen Meds: Medications Generic Name Dose Route Start Last Admin Trade Name Freq PRN Reason Stop Dose Admin Sodium Chloride 1,000 mls @ 150 mls/hr 07/05/21 15:45 07/05/21 15:47 Normal Saline IV 150 mls/hr ASDIRECTED UMA Administration Discontinued Medications Generic Name Dose Route Start Last Admin Trade Name Freq PRN Reason Stop Dose Admin Hydromorphone HCl 0.5 mg 07/05/21 15:34 07/05/21 15:45 Hydromorphone 0.5 Mg/0.5 Ml Syringe IVPUSH 07/05/21 15:35 0.5 mg ONETIME ONE Administration Hydromorphone HCl 0.5 mg 07/05/21 18:45 07/05/21 18:55 Hydromorphone 0.5 Mg/0.5 Ml Syringe IVPUSH 07/05/21 18:46 0.5 mg ONETIME ONE Administration Iopamidol 100 ml 07/05/21 16:24 07/05/21 16:27 Iopamidol 612 Mg/Ml 100 Ml Bottle IVPUSH 07/05/21 16:25 100 ml ONETIME ONE Administration Iopamidol 50 ml 07/05/21 16:24 07/05/21 16:27 Iopamidol 612 Mg/Ml 50 Ml Sdv IVPUSH 07/05/21 16:25 50 ml ONETIME ONE Administration Metoclopramide HCl 7.5 mg 07/05/21 15:34 07/05/21 15:45 Metoclopramide 10 Mg/2 Ml Sdv IVPUSH 07/05/21 15:35 7.5 mg ONETIME ONE Administration Sodium Chloride 10 ml 07/05/21 16:24 07/05/21 16:27 Sodium Chloride 0.9% 10 Ml Syringe FLUSH 07/05/21 16:25 10 ml ONETIME ONE Administration - Radiology Interpretation Free Text/Narrative:: 81-year-old male presents to the ED per [facility] after a fall at home. He cannot remember why he was up on a table but fell off of the table onto a turned over kitchen chair landing on his right posterior lateral chest. He has suffered blunt thoracic trauma to ribs 8 through 12 posterior laterally and thoracic spine in this area. Decreased air entry to this area. He also has very tender to palpation right upper quad and then with firm abdominal muscles and guarding in this area worrisome for underlying liver or kidney injuries. He will have an IV established of normal saline 150 mils per hour. Will be given Dilaudid 0.5 mg IV with Reglan 7.5 mg IV for pain relief. He will have CT of his thoracic spine and chest , abdomen and pelvis with IV contrast. - Re-Assessments/Exams Free Text/Narrative Re-Assessment/Exam: 07/05/21 17:17: CT scan of the chest has been completed with IV contrast. Thoracic aorta shows no aneurysm. No mediastinal adenopathy is seen. No hilar adenopathy noted. There is also no axillary adenopathy. Gynecomastia is noted on both sides. No pericardial thickening is seen heart is mildly enlarged. Right ribs there are old healed rib fractures noted within the third, fourth and fifth ribs. Acute right rib fractures are appreciated within the lateral sixth rib which is mildly displaced. Displaced right rib fractures also seen within the lateral seventh rib as well as slightly comminuted and displaced fracture within the light right lateral eighth rib. Mildly displaced fractures within the posterior lateral ninth rib as well as posterior 10th rib and posterior 11th rib are also seen. Nondisplaced fracture is seen within the posterior 12th rib. Left ribs show no discrete left-sided rib abnormality Lungs show prominent atelectasis located posteriorly on both sides which is worse on the right side. There is air noted within the right chest wall along the rib fractures. There is a very minimal pneumothorax seen at this time anteriorly on the right side. Small pleural effusion is seen on the right side as well. I believe this is a hemothorax. There is a small nodule noted within the right upper lung measuring about 3.4 mm. Lungs are otherwise clear. Coincidentally cervical spine shows a compression deformity within C7 which is nondescript as far as age goes. Slight superior endplate deformity is noted within T4 which again is age-indeterminate. Sternum appears to be intact. CT of the abdomen and pelvis liver contains no focal abnor mality. Gallbladder shows no calcified gallstones. Moderate hiatal hernia appreciated. Spleen size is within normal limits. Adrenal glands show no nodules. Pancreas is within normal limits. Aorta shows atherosclerotic change. 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 No retroperitoneal adenopathy is seen. Kidneys show symmetric contrast enhancement. Small scattered cysts are seen within both kidneys. No mesenteric abnormalities are seen. No pelvic mass or adenopathy is noted. Prostate gland is slightly enlarged. Mild diverticulosis is seen within the sigmoid colon with no acute diverticulitis. Appendix is seen and is normal in size. Bone window settings were reviewed which show mild degenerative change within both hips. Degenerative changes also seen within the lumbar spine and sacroiliac joints. No acute abnormalities appreciated within the abdominal and/or pelvic bony structures. CT of the thoracic spine was also completed and it does not reveal any compression deformities. It does show multilevel degenerative arthritic changes particular with anterior osteophyte formation. 07/05/21 17:29: I was able to speak through the 1 call nurse at [facility] in [place] with on-call trauma surgeon . They have graciously accepted care of this patient due to his multiple rib fractures and small hemothorax and minimal pneumothorax appreciated from trauma today. His condition is likely to deteriorate over the next 48 hours with increased pain and potential hypoxemia. His oxygen did drop to 88% after receiving Dilaudid 0.5 mg IV. We will await his COVID-19 screen and routine labs before transporting him to [facility] in [place]. 07/05/21 18:43 White count is elevated at 14.79 with a left shift of 84.3% neutrophils on auto differential. Hemoglobin is 13.2 with hematocrit of 37.8. Platelet count is low at 160,000. PT is 10.9 with an INR of 0.98. PTT is 25.9. Sodium is low at 128 with potassium of 4.7. Chloride is 95 with a bicarb of 26. Anion gap is 11.7. BUN is 24 with a creatinine elevated 1.5 and a GFR 45 i.e. stage IIIa renal insufficiency glucose of 108. Calcium is 8.7. Liver function normal. Total protein 7.4 with an albumin fraction of 3.8 serum amylase is 37 COVID-19 screen is negative. Urinalysis has not yet been reported out 07/05/21 18:[address] read on the [address] of the thoracic spine has been completed by the radiologist at this time. He suggest there is a mild compression deformity seen within C7 which we appreciated on CT chest exam. There is endplate concavities within the thoracic 4 level as well. No definite fracture line within these vertebral bodies are within other portions of the thoracic spine identified. Mild scattered endplate osteophytes are appreciated. 07/05/21 19:10 Urinalysis on dip is completely normal. Micro is pending. BNP and magnesium are also pending 07/05/21 20:07 BNP is 247. Serum magnesium is 2.1. The the micro in the urine is normal. Departure - Departure Time of Disposition: 18:50 Disposition: DC/Tfer to Acute Hospital 02 Condition: Serious Clinical Impression: Hemothorax on right, Pneumothorax on right, Hyponatremia Fall as cause of accidental injury at home as place of occurrence Qualifiers: Encounter type: initial encounter Qualified Code(s): W19.XXXA - Unspecified f all, initial encounter; Y92.009 - Unspecified place in unspecified non- institutional (private) residence as the place of occurrence of the external cause Multiple fractures of ribs of right side Qualifiers: Encounter type: initial encounter Fracture type: closed Qualified Code(s): S22.41XA - Multiple fractures of ribs, right side, initial encounter for closed fracture - Discharge Information *PRESCRIPTION DRUG MONITORING PROGRAM REVIEWED*: Not Applicable *COPY OF PRESCRIPTION DRUG MONITORING REPORT IN PATIENT [place]: Not Applicable Forms: ED Department Discharge Additional Instructions: Patient transferred to [facility] in [place] for trauma care due to lack of availability of beds in our hospital. Patient is suffered multiple fractures from ribs 6-12 on the right side with a minimal pneumothorax and small hemothorax. He does have mild hyponatremia on laboratory studies. Transferred by ground ambulance. Dr. Covington trauma surgeon has accepted care Sepsis Event Note (ED) - Evaluation Sepsis Screening Result: No Definite Risk - Focused Exam Vital Signs: Vital Signs Temp Pulse Resp BP Pulse Ox Pulse Ox 07/05/21 18:42 83 16 157/89 H 96 07/05/21 17:12 93 L 07/05/21 15:12 36.4 C 67 18 182/97 H 92 L - My Orders Last 24 Hours: My Active Orders 07/05/21 15:45 Sodium Chloride 0.9% [Normal Saline] 1,000 ml IV ASDIRECTED 07/05/21 17:03 ANTIBODY IDENTIFICATION [BBK] Stat TYPE AND SCREEN [BBK] Stat 07/05/21 18:04 PATIENT RETYPE [BBK] Routine - Assessment/Plan Last 24 Hours: My Active Orders 07/05/21 15:45 Sodium Chloride 0.9% [Normal Saline] 1,000 ml IV ASDIRECTED 07/05/21 17:03 ANTIBODY IDENTIFICATION [BBK] Stat TYPE AND SCREEN [BBK] Stat 07/05/21 18:04 PATIENT RETYPE [BBK] Routine
[2021-07-05] MEDS ORDERED: Iopamidol 612 MG/ML 50 ML SDV IVPUSH ONE (16:24)
[2021-07-05] MEDS ORDERED: Sodium Chloride 0.9% 10 ML Syringe FLUSH ONE (16:24)
[2021-07-05] MEDS ORDERED: Iopamidol 612 MG/ML 100 ML Bottle IVPUSH ONE (16:24)
--- NOTE | 2021-07-05 17:22 | CT ---
CT chest Technique: Multiple axial sections through the chest were obtained. Intravenous contrast was utilized. Reconstructed coronal and sagittal images were obtained. Comparison: Prior chest x-ray of 08/17/16 as well as prior chest CT study of 08/14/16. Findings: Thoracic aorta shows no aneurysm. No mediastinal adenopathy is seen. No hilar adenopathy seen. No axillary adenopathy is seen. Gynecomastia is noted on both sides. No pericardial thickening is seen. Heart is slightly enlarged. Right ribs: - Old healed rib fractures are noted within the third, fourth and fifth ribs. - Acute right rib fracture is noted within the lateral sixth rib which is mildly displaced. Displaced right rib fracture is also seen within the lateral seventh rib as well as slightly comminuted and displaced fracture within the right lateral eighth rib. Mildly displaced fractures within the posterolateral ninth rib as well as posterior 10th rib and posterior 11th rib are seen. Nondisplaced fracture is seen within the posterior 12th rib. Left ribs: No discrete left-sided rib abnormality is appreciated. Lungs show prominent atelectasis located posteriorly on both sides which is worse on the right side. There is air noted within the right chest wall along the rib fractures. Minimal pneumothorax is seen at this time anteriorly on the right side. Small pleural effusion is seen on the right side. There is a small nodule noted within the right upper lung measuring about 3.4 mm. Lungs are otherwise clear. Cervical spine shows a compression deformity within C7 which is nondescript as far as age goes. Slight superior endplate deformity is noted within T4 which is age indeterminate. Sternum appears to be intact. Impression: 1. Old healed fractures within the right 3rd through 5th ribs. 2. Additional acute fractures are noted within the 6th through 12th ribs which are also noted on the right side. 3. Right chest wall air. Very small pneumothorax is seen on the right side. 4. Areas of atelectasis within both lung bases. Small right-sided pleural effusion is seen. 5. 3.4 mm nodule within the right upper lung. 6. Slight anterior wedge deformity of C7 as well as mild endplate concavity to the superior endplate of T4 which are age indeterminate. Diagnostic code #3 CT abdomen and pelvis Technique: Multiple axial sections were obtained from above the dome of the diaphragm inferiorly through the pubic symphysis. Intravenous contrast was utilized. Reconstructed coronal and sagittal images were obtained. Comparison: Prior CT abdomen and pelvis performed as an angiogram study of 08/14/16. Findings: Liver contains no focal abnormality. Gallbladder shows no calcified gallstones. Moderate hiatal hernia is noted. Spleen size is within normal limits. Adrenal glands show no nodule. Pancreas is within normal limits. Aorta shows atherosclerotic change. 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 No retroperitoneal adenopathy is seen. Kidneys show symmetric contrast enhancement. Small scattered cysts are seen within both kidneys. No mesenteric abnormalities are seen. No pelvic mass or adenopathy is noted. Prostate gland is slightly enlarged. Mild diverticulosis is seen within the sigmoid colon with no diverticulitis. Appendix is seen and is normal in size. Bone window settings were reviewed which show mild degenerative change within both hips. Degenerative change is also seen within the lumbar spine and sacroiliac joints. No acute abnormality is appreciated within the abdominal and pelvic bony structures. Impression: 1. Findings which are believed to be chronic and of no acute significance. Diagnostic code #2
--- NOTE | 2021-07-05 18:42 | CT ---
CT thoracic spine Technique: Multiple axial sections through the thoracic spine were obtained. Reconstructed coronal and sagittal images were also obtained. Comparison: Prior CT chest, abdomen and pelvis performed earlier on the same day (4:17 PM). Findings: Mild compression deformity is seen within C7 as well as endplate concavities within T4. I do not see a definite fracture line within these vertebral bodies or within other portions of the thoracic spine. Mild scattered endplate osteophytes are seen. Numerous rib fractures are noted as described on chest CT. Small right-sided pleural effusion is seen. Impression: 1. Compression deformities as previously described. No definite acute fracture line is seen. Scattered degenerative change is also noted. 2. Rib fractures and small right-sided pleural effusion as previously noted. Diagnostic code #2
[2021-07-05 18:43] VITALS: BP 157/89; PULSE 83
== END 2021-07-05 19:01 ==
LOC: JD.ED 15:08
DX: S22.41XA Multiple fractures of ribs, right side, initial encounter for closed fracture (principal); S27.2XXA Traumatic hemopneumothorax, initial encounter; E87.1 Hypo-osmolality and hyponatremia; E78.00 Pure hypercholesterolemia, unspecified; I10 Essential (primary) hypertension; Z88.8 Allergy status to other drugs, medicaments and biological substances; Z79.899 Other long term (current) drug therapy; Z20.822 Contact with and (suspected) exposure to COVID-19; W18.39XA Other fall on same level, initial encounter; Y92.000 Kitchen of unspecified non-institutional (private) residence as the place of occurrence of the external cause; R06.02 Shortness of breath
CPT/HCPCS: 36415; 71260; 72128; 74177; 80053; 81001; 82150; 83735; 83880; 85025; 85610; 85730; 86850; 86870; 86900; 86901; 93005; 96374; 96375; 96376; 99285; J1170; J2765; J7030; Q9967; U0002; 93010

== ENCOUNTER 2022-10-14 01:40 | Emergency (ER) | payer MEDICARE, OTHER ==
[2022-10-14] MEDS ORDERED: Aspirin 81 MG Tab.Chew PO STA (01:56)
[2022-10-14] MEDS ORDERED: Heparin Sodium 5,000 Units/ML Vial IVPUSH STA (01:58)
[2022-10-14] MEDS ORDERED: Heparin Sodium/D5W 25,000 UNITS/500 ML BAG IV SCH (02:00)
[2022-10-14] MEDS ORDERED: Clopidogrel 75 MG Tab PO ONE (02:08)
[2022-10-14] MEDS ORDERED: Tenecteplase 50 MG Kit IV STA (02:09)
[2022-10-14] MEDS ORDERED: Tenecteplase 50 MG Kit IV ONE (02:09)
[2022-10-14] MEDS ORDERED: atorvaSTATin 40 MG Tab PO STA (02:10)
[2022-10-14 02:32] VITALS: BP 134/82; PULSE 59
[2022-10-14] MEDS: DOPamine/Dextrose 5%-Water 400 MG/250 ML BAG ONE ×2 (02:37→02:56)
[2022-10-14] MEDS ORDERED: Ondansetron 4 MG/2 ML SDV IVPUSH ONE (02:51)
[2022-10-14] MEDS ORDERED: DOPamine/Dextrose 5%-Water 400 MG/250 ML BAG IV SCH (03:00)
[2022-10-14 03:27] LABS: ESTIMATED GFR 40 mL/min (>60)
== END 2022-10-14 03:33 ==
LOC: JD.ED 01:40
DX: I21.19 ST elevation (STEMI) myocardial infarction involving other coronary artery of inferior wall (principal); D64.9 Anemia, unspecified; E78.00 Pure hypercholesterolemia, unspecified; N40.0 Benign prostatic hyperplasia without lower urinary tract symptoms; Z88.8 Allergy status to other drugs, medicaments and biological substances; Z79.899 Other long term (current) drug therapy; Z20.822 Contact with and (suspected) exposure to COVID-19
CPT/HCPCS: 36415; 71045; 71045-26; 80053; 83735; 83880; 84484; 85025; 85379; 85610; 85730; 92977; 93005; 96365; 96368; 96375; 99285-25; A9270-GY; J1265; J1644; J2405; J3101; U0002

== ENCOUNTER 2024-06-19 15:32 | Emergency (ER) | payer MEDICARE, OTHER ==
[2024-06-19 16:21] LABS: BASOPHILS PERCENT AUTO 0.2 % (0.0-1.0); EOSINOPHILS ABSOLUTE AUTO 0.1 K/mm3 (0.0-0.4); EOSINOPHILS PERCENT AUTO 2.1 % (0.0-6.0); HEMATOCRIT 35.5 % (42.0-52.0); HEMOGLOBIN 12.2 gm/dl (14.0-18.0); IMMATURE GRAN ABSOLUTE AUTO 0.03 K/mm3 (0.00-0.05); IMMATURE GRAN PERCENT AUTO 0.5 % (0.0-0.4); LYMPHOCYTES ABSOLUTE AUTO 1.8 K/mm3 (1.0-4.8); LYMPHOCYTES PERCENT AUTO 27.8 % (24.0-44.0); MEAN CORPUSCULAR HEMOGLOBIN 31.5 pg (28.0-32.0); MEAN CORPUSCULAR HGB CONC 34.4 g/dl (32.0-36.0); MEAN CORPUSCULAR VOLUME 91.7 fl (83.0-99.0); MONOCYTES ABSOLUTE AUTO 0.6 K/mm3 (0.0-0.8); MONOCYTES PERCENT AUTO 9.8 % (0.0-8.0); NEUTROPHILS ABSOLUTE AUTO 3.8 K/mm3 (1.8-7.7); NEUTROPHILS PERCENT AUTO 59.6 % (41.0-71.0); PLATELET COUNT,PLT 171 K/mm3 (150-400); RED BLOOD CELL COUNT 3.87 M/mm3 (4.52-5.90); WHITE BLOOD CELL COUNT,WBC 6.34 K/mm3 (3.9-11.3)
[2024-06-19 17:00] LABS: ALANINE AMINOTRANSFERASE,ALT 20 U/L (16-63); ALBUMIN 3.4 g/dl (3.4-5.0); ALKALINE PHOSPHATASE 80 U/L (46-116); ANION GAP 10.7 (5-15); ASPARTATE AMNIOTRANSFERASE,AST 18 U/L (15-37); BILIRUBIN TOTAL 0.5 mg/dL (0.2-1.0); BLOOD UREA NITROGEN,BUN 21 mg/dL (7-18); BUN/CREATININE RATIO 13.1 (14-18); CALCIUM 8.6 mg/dL (8.5-10.1); CARBON DIOXIDE,CO2 28 mEq/L (21-32); CHLORIDE,CL 102 mEq/L (98-107); CREATININE 1.6 mg/dL (0.7-1.3); ESTIMATED GFR 42 mL/min (>60); GLUCOSE RANDOM 118 mg/dL (70-99); POTASSIUM,K 3.7 mEq/L (3.5-5.1); PROTEIN TOTAL,TP 6.8 g/dl (6.4-8.2); SODIUM,NA 137 mEq/L (136-145); TROPONIN I HIGH SENSITIVITY 7 pg/mL (<=76)
[2024-06-19 18:06] LABS: APPEARANCE,URINE CLEAR (Clear); BILIRUBIN,URINE NEGATIVE (Negative); COLOR,URINE LIGHT YELLOW (Yellow); GLUCOSE,URINE NEGATIVE (Negative); KETONES,URINE NEGATIVE (Negative); LEUKOCYTE ESTERASE,URINE NEGATIVE (Negative); NITRITE,URINE NEGATIVE (Negative); OCCULT BLOOD,URINE NEGATIVE (Negative); PROTEIN,URINE NEGATIVE (Negative); UROBILINOGEN,URINE 0.2 (0.2-1.0)
[2024-06-19 21:11] VITALS: PULSE 80
[2024-06-19 21:17] VITALS: BP 137/85
== END 2024-06-19 18:35 | disposition home or self-care (01) ==
LOC: JD.ED 15:32
DX: R07.89 Other chest pain (principal); E78.00 Pure hypercholesterolemia, unspecified; I10 Essential (primary) hypertension; Z88.1 Allergy status to other antibiotic agents; Z79.899 Other long term (current) drug therapy
CPT/HCPCS: 36415; 71045; 71045-26; 80053; 81003; 83880; 84484; 85025; 93010; 99284; 99285

== ENCOUNTER 2025-04-01 19:42 | Emergency (ER) | payer MEDICARE, OTHER ==
[2025-04-01 20:40] LABS: BASOPHILS PERCENT AUTO 0.3 % (0.0-1.0); EOSINOPHILS ABSOLUTE AUTO 0.1 K/mm3 (0.0-0.4); HEMATOCRIT 40.6 % (42.0-52.0); HEMOGLOBIN 14.1 gm/dl (14.0-18.0); IMMATURE GRAN ABSOLUTE AUTO 0.06 K/mm3 (0.00-0.05); IMMATURE GRAN PERCENT AUTO 0.5 % (0.0-0.4); LYMPHOCYTES ABSOLUTE AUTO 1.6 K/mm3 (1.0-4.8); MEAN CORPUSCULAR HGB CONC 34.7 g/dl (32.0-36.0); MEAN CORPUSCULAR VOLUME 92.1 fl (83.0-99.0); MEAN PLATELET VOLUME 9.2 fl (9.4-12.4); MONOCYTES ABSOLUTE AUTO 0.7 K/mm3 (0.0-0.8); MONOCYTES PERCENT AUTO 5.6 % (0.0-8.0); NEUTROPHILS ABSOLUTE AUTO 9.9 K/mm3 (1.8-7.7); NEUTROPHILS PERCENT AUTO 79.6 % (41.0-71.0); PLATELET COUNT,PLT 192 K/mm3 (150-400); RED BLOOD CELL COUNT 4.41 M/mm3 (4.52-5.90); WHITE BLOOD CELL COUNT,WBC 12.38 K/mm3 (3.9-11.3)
[2025-04-01 20:58] LABS: INR 1.06; PROTHROMBIN TIME 11.2 SECONDS (9.7-12.0)
[2025-04-01 20:59] LABS: PTT,PARTIAL THROMBOPLSTIN TIME 24.6 SECONDS (21.7-31.4)
[2025-04-01 21:12] LABS: ALBUMIN 3.8 g/dl (3.4-5.0); ANION GAP 11.8 (5-15); BILIRUBIN TOTAL 0.6 mg/dL (0.2-1.0); BUN/CREATININE RATIO 12.5 (14-18); CALCIUM 9.3 mg/dL (8.5-10.1); CREATININE 1.6 mg/dL (0.7-1.3); EST CRCL DRUG DOSING (CG) 28.78 mL/min; MAGNESIUM 2.1 mg/dL (1.8-2.4); POTASSIUM,K 3.8 mEq/L (3.5-5.1); PROTEIN TOTAL,TP 7.6 g/dl (6.4-8.2)
[2025-04-01] MEDS: LORazepam 2 MG/ML SDV IVPUSH ONE (22:35)
[2025-04-01] MEDS: levETIRAcetam 500 MG/5 ML SDV IVPUSH ONE (22:38)
[2025-04-01 23:21] VITALS: BP 115/72; PULSE 77
== END 2025-04-01 23:00 | disposition home or self-care (01) ==
LOC: JD.ED 19:42
DX: R56.9 Unspecified convulsions (principal); E78.00 Pure hypercholesterolemia, unspecified; Z88.1 Allergy status to other antibiotic agents; Z79.899 Other long term (current) drug therapy
CPT/HCPCS: 36415; 70450; 71045; 80053; 83605; 83735; 83880; 84484; 85025; 85610; 85730; 93005; 96374; 96375; 99285; J1953; J2060

== ENCOUNTER 2025-06-24 15:37 | Emergency (ER) | payer MEDICARE, OTHER ==
[2025-06-24] MEDS ORDERED: Sodium Chloride 0.9% 10 ML Syringe FLUSH PRN (15:52)
[2025-06-24 17:03] LABS: BASOPHILS ABSOLUTE AUTO 0.0 K/mm3 (0.0-0.2); BASOPHILS PERCENT AUTO 0.5 % (0.0-1.0); EOSINOPHILS ABSOLUTE AUTO 0.1 K/mm3 (0.0-0.4); EOSINOPHILS PERCENT AUTO 1.2 % (0.0-6.0); IMMATURE GRAN ABSOLUTE AUTO 0.03 K/mm3 (0.00-0.05); IMMATURE GRAN PERCENT AUTO 0.5 % (0.0-0.4); LYMPHOCYTES ABSOLUTE AUTO 1.3 K/mm3 (1.0-4.8); LYMPHOCYTES PERCENT AUTO 21.8 % (24.0-44.0); MONOCYTES ABSOLUTE AUTO 0.4 K/mm3 (0.0-0.8); MONOCYTES PERCENT AUTO 6.1 % (0.0-8.0); NEUTROPHILS ABSOLUTE AUTO 4.2 K/mm3 (1.8-7.7); NEUTROPHILS PERCENT AUTO 69.9 % (41.0-71.0); NRBC ABSOLUTE 0.00 (0.00-0.02); NRBC PERCENT 0.0 % (0.0-0.2)
[2025-06-24 17:46] LABS: A/G RATIO 0.9 (1-2); ALANINE AMINOTRANSFERASE,ALT 17.0 U/L (16-63); ASPARTATE AMNIOTRANSFERASE,AST 18.0 U/L (15-37); BILIRUBIN TOTAL 0.6 mg/dL (0.2-1.0); BLOOD UREA NITROGEN,BUN 22.0 mg/dL (7-18); CARBON DIOXIDE,CO2 26.0 mEq/L (21-32); CHLORIDE,CL 104.0 mEq/L (98-107); CREATININE 1.7 mg/dL (0.7-1.3); EST CRCL DRUG DOSING (CG) 28.14 mL/min; ESTIMATED GFR 39.0 mL/min (>60); GLUCOSE RANDOM 137.0 mg/dL (70-99); POTASSIUM,K 3.9 mEq/L (3.5-5.1); PROTEIN TOTAL,TP 6.8 g/dl (6.4-8.2); SODIUM,NA 138.0 mEq/L (136-145); TROPONIN I HIGH SENSITIVITY 7.0 pg/mL (<=76)
[2025-06-24 18:03] LABS: RED BLOOD CELL COUNT 4.02 M/mm3 (4.52-5.90); WHITE BLOOD CELL COUNT,WBC 7.72 K/mm3 (3.9-11.3)
[2025-06-24 18:05] LABS: MEAN PLATELET VOLUME 10.1 fl (9.4-12.4); PLATELET COUNT,PLT 130 K/mm3 (150-400)
[2025-06-24 18:29] LABS: APPEARANCE,URINE CLEAR (Clear); GLUCOSE,URINE NEGATIVE (Negative); OCCULT BLOOD,URINE NEGATIVE (Negative)
[2025-06-24 18:44] LABS: EPITHELIAL CELLS,URINE 0-5 /hpf (0-5)
[2025-06-24 19:19] VITALS: BP 139/91; PULSE 86
== END 2025-06-24 19:00 | disposition home or self-care (01) ==
LOC: JD.ED 15:37
DX: R56.9 Unspecified convulsions (principal); E78.00 Pure hypercholesterolemia, unspecified; I10 Essential (primary) hypertension; Z88.8 Allergy status to other drugs, medicaments and biological substances; Z79.899 Other long term (current) drug therapy
CPT/HCPCS: 36415; 70450; 70450-26; 71045; 71045-26; 80053; 81001; 82947; 83735; 84484; 85025; 93005; 99285